=== PATIENT | male | born 1960 | race Caucasian/White ===

== ENCOUNTER 2017-11-28 13:34 | Emergency (ER) | payer SELFPAY ==
[~2017-11-28] VITALS: Ht 180.3 cm; Wt 90.7 kg
[2017-11-28 13:51] VITALS: Ht 180.3 cm; Wt 90.7 kg
[2017-11-28 15:38] VITALS: BP 119/82
[2017-11-28 16:45] LABS: AMPHETAMINE QUAL UR NONE DETECTED (See below)
== END 2017-11-28 15:38 | disposition home or self-care (01) ==
LOC: EDBD 13:34 → ED 13:34
PROVIDERS: Emergency Medicine
DX: S20.212A Contusion of left front wall of thorax, initial encounter (principal); Z00.00 Encounter for general adult medical examination without abnormal findings; Y04.0XXA Assault by unarmed brawl or fight, initial encounter; Y93.89 Activity, other specified; Y92.89 Other specified places as the place of occurrence of the external cause; Y99.8 Other external cause status
CPT/HCPCS: G0480; J1885; J7030

== ENCOUNTER 2019-09-25 17:00 | Emergency (ER) | payer SELFPAY ==
[~2019-09-25] VITALS: Ht 172.7 cm; Wt 81.6 kg
[2019-09-25 17:54] LABS: BASOPHIL % 0.9 % (0-2); PLATELET COUNT 157 x10^3mcL (130-400); RED CELL DISTRIBUTION WIDTH 13.9 % (11.5-14.5)
[2019-09-25 18:13] LABS: CALCIUM 8.1 mg/dL (8.5-10.1); CARBON DIOXIDE 24.7 mmol/L (21-32); CHLORIDE SERUM 106 mmol/L (98-107); CREATININE SERUM 1.1 mg/dL (0.7-1.3); GFR1 > 60 mL/min; GLUCOSE SERUM 99 mg/dL (74-106); POTASSIUM SERUM 3.9 mmol/L (3.5-5.1); SODIUM SERUM 142 mmol/L (136-145)
[2019-09-25 18:18] LABS: ALBUMIN 3.8 g/dL (3.4-5.0); ALKALINE PHOSPHATASE 61 U/L (46-116); ALT/SGPT 26 U/L (16-63); AST/SGOT 26 U/L (15-37); BILIRUBIN TOTAL 0.5 mg/dL (0.20-1.00); TOTAL PROTEIN, SERUM 6.7 g/dL (6.4-8.2)
[2019-09-25 20:45] VITALS: BP 132/84
== END 2019-09-25 20:45 | disposition home or self-care (01) ==
LOC: ED 17:00
PROVIDERS: Emergency Medicine
DX: T67.5XXA Heat exhaustion, unspecified, initial encounter (principal); E86.0 Dehydration; X58.XXXA Exposure to other specified factors, initial encounter; Y93.89 Activity, other specified; Y92.89 Other specified places as the place of occurrence of the external cause; Y99.8 Other external cause status
CPT/HCPCS: J7030; J7040